=== PATIENT | female | born 1990 | race Caucasian/White ===

== ENCOUNTER 2022-12-31 12:53 | Inpatient (IN) | payer MEDICAID ==
[~2022-12-31] VITALS: Ht 160 cm; Wt 95.3 kg
[2022-12-31] MEDS ORDERED: MORPHINE SULFATE INJ 4 MG/ML DISP.SYRIN ONE (13:21)
[2022-12-31] MEDS ORDERED: ONDANSETRON HCL/PF 4 MG/2 ML VIAL ONE (13:21)
[2022-12-31] MEDS ORDERED: MORPHINE SULFATE INJ 2 MG/ML DISP.SYRIN IV ONE ×2 (13:30→16:00)
[2022-12-31] MEDS ORDERED: ONDANSETRON HCL/PF 4 MG/2 ML VIAL IV ONE (13:30)
--- NOTE | 2022-12-31 13:45 | NUR ---
Pt in room. Pt in position moaning in pain. She is stating her abdomen is hurting.
--- NOTE | 2022-12-31 13:46 | NUR ---
Pt continues to moan and hold herself in position. Dr russell. After morphine is still continuing to have pain.
--- NOTE | 2022-12-31 13:55 | NUR ---
Dr made aware that pt is in pain.
[2022-12-31 14:03] LABS: BASOPHILS # (AUTO) 0.1 K/uL (0.0-0.2); BASOPHILS % (AUTO) 0.6 % (0.0-2.0); EOSINOPHILS % (AUTO) 3.1 % (0.0-6.0); HEMATOCRIT 36 % (33-45); HEMOGLOBIN 11.2 g/dL (11.5-14.8); LYMPHOCYTES # (AUTO) 1.5 K/uL (0.8-4.8); LYMPHOCYTES % (AUTO) 16.6 % (20.0-44.0); MEAN CORPUSCULAR HGB CONC 32 g/dl (31.0-36.0); MEAN CORPUSCULAR VOLUME 76 fL (82-100); MONOCYTES # (AUTO) 0.5 K/uL (0.1-1.30); MONOCYTES % (AUTO) 5.1 % (2.0-12.0); NEUTROPHILS # (AUTO) 6.5 K/uL (1.8-8.9); NEUTROPHILS % (AUTO) 74.6 % (43.0-81.0); PLATELET COUNT (AUTO) 454 K/uL (150-450); RED BLOOD CELL COUNT(AUTO) 4.65 MIL/uL (4.0-5.2); WHITE BLOOD COUNT (AUTO) 8.8 K/uL (4.3-11.0)
[2022-12-31 14:20] LABS: ALBUMIN 3.5 g/dL (3.4-5.0); BILIRUBIN,DIRECT 0.1 mg/dL (0.0-0.2); BILIRUBIN,TOTAL 0.3 mg/dL (0.2-1.0); CALCIUM, SERUM 9.1 mg/dL (8.5-10.1); CREATININE 0.8 mg/dL (0.6-1.3); POTASSIUM 3.1 mmol/L (3.5-5.1); TOTAL PROTEIN, SERUM 7.8 g/dL (6.4-8.2)
--- NOTE | 2022-12-31 14:35 | NUR ---
Pt in room with eyes closed. Breathing even and unlabored. Call light within reach. NO signs of distress at the moment.
[2022-12-31] MEDS ORDERED: CEFTRIAXONE 1GM BAG (ER ONLY) 1 GM/50 ML PIGGYBACK IV ONE (16:00)
[2022-12-31] MEDS ORDERED: FLAGYL/NS RTU 500 MG/100 ML PIGGYBACK IV ONE (16:00)
[2022-12-31] MEDS ORDERED: METRONIDAZOLE 500MG/ NS 100ML 100 ML IV ONE (16:20)
[2022-12-31] MEDS ORDERED: MORPHINE SULFATE INJ 2 MG/ML DISP.SYRIN ONE (16:20)
[2022-12-31] MEDS ORDERED: POTASSIUM CL. PREMIX PERIPHER. 50 ML ONE (16:20)
[2022-12-31] MEDS ORDERED: CEFTRIAXONE 1GM BAG (ER ONLY) 50 ML IV ONE (16:20)
--- NOTE | 2022-12-31 16:30 | NUR ---
COVID SWAB COLLECTED AND SENT TO LAB
[2022-12-31] MEDS: POTASSIUM CL. PREMIX PERIPHER. 50 ML IV SCH ×2 (16:35→16:45)
--- NOTE | 2022-12-31 17:09 | NUR ---
[facility] CALLED I&C TECH PAGED.
[2022-12-31 17:21] VITALS: BP 117/55
[2022-12-31] MEDS ORDERED: ONDANSETRON HCL/PF 4 MG/2 ML VIAL IVP PRN (17:30)
[2022-12-31] MEDS ORDERED: ACETAMINOPHEN 325 MG TABLET PO PRN (17:30)
[2022-12-31] MEDS ORDERED: MORPHINE SULFATE INJ 2 MG/ML DISP.SYRIN IV PRN (17:30)
--- NOTE | 2022-12-31 17:47 | NUR ---
GOT BED 316-2 ADMITTING INFORMED.
--- NOTE | 2022-12-31 18:21 | NUR ---
Report given to Anisha WHITTEN to continue care.
--- NOTE | 2022-12-31 18:43 | NUR ---
CALLED LAB COVID RESULT IN 10-15 MINS.
--- NOTE | 2022-12-31 19:30 | NUR ---
MS RN NOTE DURING CHANGE SHIFT REPORT, WHEN WALKING INTO PATIENT'S ROOM, PATIENT WAS TALKING WITH DR. HERNANDEZ. PATIENT INSISTS TO LEAVE WITH AMA; DR. HERNANDEZ EDUCATED PATIENT'S RISK OF LEAVING AGAINST MEDICAL ADVICE, PATIENT STILL WANTS TO LEAVE THE HOSPITAL AND STATS SHE HAS FAMILY EMERGENCY. PATIENT SIGNED THE BELONGING SHEET AND AMA FORMS. COPIES WERE MADE AND PUT IN THE PATIENT'S CHART. IV AND ID BAND HAS BEEN REMOVED FROM THE PATIENT. CHARGE NURSE JAZMYNE BEING NOTIFIED. PATIENT TOOK THE ELEVATOR AND LEFT.
--- NOTE | 2022-12-31 22:30 | NUR ---
MSRFranko [employer] HANDED SURGERY SCHEDULE AND I FOUND OUT PATIENT FOR SURGERY IN AM. I WAS UNAWARE PT WILL HAVE SURGERY. INFORMED HOUSESUPERVISOR PT SIGNED OUT AMA CHANGE OF SHIFT AND LEFT AT 1930 PER PRIMARY NURSE. I TOLD [employer] FOR HER TO CALL OR STAFF NOT TO COME AND SHE RESPONDED IF DR. MARQUES WAS NOTIFIED. I TOLD HER NO, SURGEON NOT NOTIFIED. THERE WAS MISCOMMUNICATION AND TOLD HER TO CALL OR STAFF NOT TO COME AND TO NOTIFY DR. MARQUES.
[2023-01-01] MEDS ORDERED: ENOXAPARIN SODIUM 40 MG/0.4 ML DISP.SYRIN SQ SCH (20:30)
== END 2022-12-31 19:30 | disposition left against medical advice (07) ==
LOC: ER 13:00 → MED 18:06
PROVIDERS: ADMIT Internal Medicine; ATTEND Internal Medicine
DX: K80.00 Calculus of gallbladder with acute cholecystitis without obstruction (principal); D50.9 Iron deficiency anemia, unspecified; E87.6 Hypokalemia; Z20.822 Contact with and (suspected) exposure to COVID-19
CPT/HCPCS: 36415; 76705-TC; 80048-TC; 80076-TC; 83690-TC; 85025-TC; 87040-TC; 87081-TC; G0378; J0696; J2270; J2405; J3480

== ENCOUNTER 2025-06-11 21:17 | Emergency (ER) | payer MEDICAID, OTHER ==
[~2025-06-11] VITALS: Ht 160 cm; Wt 104.3 kg
[2025-06-11] MEDS ORDERED: ADENOSINE 6 MG/2 ML VIAL ONE (21:59)
[2025-06-11 22:53] LABS: PLATELET COUNT (AUTO) 417 K/uL (150-450); RED BLOOD CELL COUNT(AUTO) 4.37 MIL/uL (4.0-5.2); RED CELL DISTRIBUTION WIDTH 17.4 % (11.5-15.0); WHITE BLOOD COUNT (AUTO) 7.0 K/uL (4.3-11.0)
[2025-06-11 22:55] LABS: CALCIUM, SERUM 9.6 mg/dL (8.5-10.1); CREATININE 0.5 mg/dL (0.6-1.3); SODIUM SERUM 138.0 mmol/L (136-145); UREA NITROGEN, BLOOD 11.0 mg/dL (7-18)
[2025-06-11 22:56] LABS: ERYTHROCYTE SEDIMENTATION RATE 70 MM/HR (0-20)
[2025-06-11 23:04] LABS: ASPARTATE AMINOTRANSFERASE 13.0 U/L (15-37); TOTAL PROTEIN, SERUM 7.5 g/dL (6.4-8.2)
[2025-06-11 23:20] LABS: APPEARANCE,URINE CLEAR (CLEAR); BLOOD, URINE NEGATIVE Ery/uL (NEGATIVE); LEUKOCYTE ESTERASE ,URINE NEGATIVE (NEGATIVE); NITRITE, URINE NEGATIVE (NEGATIVE); UGLUCOSE NEGATIVE (NEGATIVE)
[2025-06-11] MEDS ORDERED: KETOROLAC TROMETHAMINE INJ 30 MG/ML VIAL ONE (23:22)
[2025-06-11 23:24] LABS: PREGNANCY TEST URINE QUAL NEGATIVE (NEGATIVE)
[2025-06-11] MEDS: KETOROLAC TROMETHAMINE INJ 30 MG/ML VIAL IM ONE (23:29)
[2025-06-11 23:38] LABS: BARBITURATE, URINE NEGATIVE (NEGATIVE); BENZODIAZEPINE, URINE NEGATIVE (NEGATIVE); COCCAINE, URINE NEGATIVE (NEGATIVE); OPIATE, URINE NEGATIVE (NEGATIVE)
[2025-06-11 23:43] LABS: AMPHETAMINE, URINE POSITIVE (NEGATIVE); CANNABINOID, URINE POSITIVE (NEGATIVE)
[2025-06-12] MEDS ORDERED: LIDOCAINE 1% INJ 50 ML MDV IJ ONE (01:15)
[2025-06-12] MEDS: LIDOCAINE /MPF 1% VIAL 5 ML VIAL IJ ONE (01:15)
[2025-06-12] MEDS ORDERED: ONDANSETRON 4 MG TAB.RAPDIS ONE (01:54)
[2025-06-12] MEDS ORDERED: HYDROMORPHONE 1 MG/1 ML DISP.SYRIN ONE (01:54)
[2025-06-12] MEDS: HYDROMORPHONE 1 MG/1 ML DISP.SYRIN IM ONE (01:59)
[2025-06-12] MEDS: ONDANSETRON 4 MG TAB.RAPDIS PO ONE (01:59)
[2025-06-12 05:16] LABS: PROTEIN, BODY FLUID 4.0 G/DL
[2025-06-12] MEDS ORDERED: NAPR-1009 PO (05:29)
[2025-06-12 05:37] LABS: APPEARANCE,SPUN,BODY FLUID CLEAR (CLEAR); TOTAL VOLUME,BODY FLUID 10 mL; WBC, BODY FLUID 413 /cu. mm. (0-200)
[2025-06-12 05:40] VITALS: BP 130/79; TEMP 98.1; O2SAT 98
[2025-06-12 06:19] LABS: MONOCYTES,BODY FLUID 2 %
== END 2025-06-12 05:40 | disposition home or self-care (01) ==
LOC: ER 21:22
DX: M17.11 Unilateral primary osteoarthritis, right knee (principal); M79.89 Other specified soft tissue disorders; R03.0 Elevated blood-pressure reading, without diagnosis of hypertension; Z60.2 Problems related to living alone; Z79.899 Other long term (current) drug therapy
CPT/HCPCS: 99285; 20610; 73700; 93971; 73564; 85025; 84703; 85652; 36415 ×2; 80053; 80307; 96372 ×2; 81003; 89060; 89051; J1885; J3490; Q0162; J1171; J0153

== ENCOUNTER 2025-09-21 05:56 | Emergency (ER) | payer OTHER ==
[~2025-09-21] VITALS: Ht 160 cm; Wt 108.9 kg
[~2025-09-21 05:56] MED LIST: NAPR-1009 PO
[2025-09-21] MEDS ORDERED: IBUP-1490 PO (08:17)
[2025-09-21 08:50] VITALS: BP 101/73; TEMP 98.4; O2SAT 99
== END 2025-09-21 08:51 | disposition home or self-care (01) ==
LOC: ER 06:04
DX: G56.03 Carpal tunnel syndrome, bilateral upper limbs (principal); L30.1 Dyshidrosis [pompholyx]; Z60.2 Problems related to living alone
CPT/HCPCS: 72125-TC